=== PATIENT | female | born 2000 | race Caucasian/White ===

== ENCOUNTER 2021-02-12 20:07 | Inpatient (IN) ==
[2021-02-12] MEDS ORDERED: ONDANSETRON INJ 2 MG/ML 2 ML VIAL IV STA (20:42)
[2021-02-12] MEDS ORDERED: KETOROLAC TROMETHAMINE 15 MG/ML VIAL IV ONE (20:42)
--- NOTE | 2021-02-12 20:45 | Emergency Department Note ---
History of Present Illness General Chief complaint: Illness Stated complaint: VOMING, FEVER, DEHYDRATION Time Seen by Provider: 02/12/21 20:26 Source: patient Mode of arrival: ambulatory Limitations: no limitations History of Present Illness Maximum Pain Intensity: 8 This patient comes in feeling ill since yesterday. She had a fever and vomiting and nausea. She has body aches diffusely. She does suffer from migraines but had no significant headache neck pain or stiffness she does have a sore throat and her tonsils have been previously removed. Minimal cough. No abdominal pain. Denies . No dysuria hematuria. She may have been around somebody who was sick. She did have Covid back in November and all is also had one of the vaccines. She has a history of rheumatic heart disease and has had n o complications related to this although she does take chronic penicillin Home Medications Medication Instructions Recorded Confirmed Type alprazolam [Xanax] 0.25 mg PO DIRECTED PRN 11/29/20 02/12/21 History loratadine [Claritin] 10 mg PO QAM 11/29/20 02/12/21 History methylphenidate HCl [Ritalin] 5 mg PO DIRECTED PRN 11/29/20 02/12/21 History norethindrone (contraceptive) 0.35 mg PO HS 11/29/20 02/12/21 History [Magdalena] penicillin V potassium 250 mg PO BID 11/29/20 02/12/21 History vortioxetine [Trintellix] 10 mg PO HS 11/29/20 02/12/21 History Allergies Allergy/AdvReac Type Severity Reaction Status Date / Time No Known Allergies Allergy Verified 02/12/21 21:53 Past Med/Surg History Medical History (Updated 02/13/21 @ 10:47 by Fredi Robin MD) COVID-19 Rheumatic heart disease Strep pharyngitis Surgical History No significant past surgical history Social History Smoking Status: Never smoker Hx Alcohol Use: Yes Alcohol type: beer and hard liquor Hx Substance Use: No Preferred Language: Martiniquais Communication Ability: Effective Hood Maker Required: No Beliefs That Will Affect Care: None Current Living Situation: Other Current Living Situation Comment: Apartment with 2 roommates current occupational status: student Other Information That Helps Us Care for You: No Feels Safe at Home: Yes Safety Concerns: Feels Safe At This Time Assistive Devices: None Review of Systems A total of 10 systems reviewed and were otherwise negative Physical Exam Vital Signs Vital Signs - 24 hr 02/12/21 20:11 02/12/21 20:47 02/12/21 20:50 Temperature 37.6 C H Temperature Source Temporal Artery Scan Pulse Rate 120 H 97 H 99 H Pulse Rate from SpO2 Sensor 99 H 102 H Respiratory Rate 22 14 13 Respiratory Effort / Characteristics Respiratory Depth Normal Blood Pressure 124/80 123/66 Blood Pressure Mean 94 85 Pulse Oximetry 99 99 100 Oxygen Delivery Method Room Air Sepsis Recent Fever Within 48 Hours Yes Sepsis New/Unexplained Change in Mental Status N/A Sepsis Action Taken by Nursing No Action Required 02/12/21 21:00 02/12/21 21:01 02/12/21 21:03 Temperature Temperature Source Pulse Rate 98 H 94 H Pulse Rate from SpO2 Sensor 99 H 95 H Respiratory Rate 33 H 17 Respiratory Effort / Characteristics Respiratory Depth Blood Pressure 110/58 L Blood Pressure Mean 75 Pulse Oximetry 99 98 100 Oxygen Delivery Method Room Air Sepsis Recent Fever Within 48 Hours Sepsis New/Unexplained Change in Mental Status Sepsis Action Taken by Nursing 02/12/21 21:20 02/12/21 21:30 02/12/21 21:31 Temperature Temperature Source Pulse Rate 101 H 101 H 101 H Pulse Rate from SpO2 Sensor Respiratory Rate 17 21 22 Respiratory Effort / Characteristics Non-Labored Respiratory Depth Blood Pressure 122/70 Blood Pressure Mean 87 Pulse Oximetry 99 Oxygen Delivery Method Room Air Sepsis Recent Fever Within 48 Hours Sepsis New/Unexplained Change in Mental Status Sepsis Action Taken by Nursing 02/12/21 21:40 02/12/21 22:00 02/12/21 22:01 Temperature Temperature Source Pulse Rate 107 H 98 H 101 H Pulse Rate from SpO2 Sensor 111 H 100 H 101 H Respiratory Rate 19 19 17 Respiratory Effort / Characteristics Respiratory Depth Blood Pressure 112/54 L Blood Pressure Mean 73 Pulse Oximetry 98 99 99 Oxygen Delivery Method Sepsis Recent Fever Within 48 Hours Sepsis New/Unexplained Change in Mental Status Sepsis Action Taken by Nursing 02/12/21 22:20 02/12/21 22:30 02/12/21 22:40 Temperature Temperature Source Pulse Rate 99 H 102 H 102 H Pulse Rate from SpO2 Sensor 99 H 101 H 102 H Respiratory Rate 16 22 20 Respiratory Effort / Characteristics Respiratory Depth Blood Pressure 108/53 L Blood Pressure Mean 71 Pulse Oximetry 99 100 100 Oxygen Delivery Method Sepsis Recent Fever Within 48 Hours Sepsis New/Unexplained Change in Mental Status Sepsis Action Taken by Nursing 02/12/21 23:00 02/12/21 23:01 02/12/21 23:14 Temperature 38.3 C H Temperature Source Oral Pulse Rate 99 H 99 H Pulse Rate from SpO2 Sensor 98 H 100 H Respiratory Rate 19 21 Respiratory Effort / Characteristics Respiratory Depth Blood Pressure 115/49 L Blood Pressure Mean 71 Pulse Oximetry 98 98 Oxygen Delivery Method Sepsis Recent Fever Within 48 Hours Sepsis New/Unexplained Change in Mental Status Sepsis Action Taken by Nursing 02/12/21 23:20 02/12/21 23:30 Temperature Temperature Source Pulse Rate 111 H 120 H Pulse Rate from SpO2 Sensor 113 H 118 H Respiratory Rate 19 15 Respiratory Effort / Characteristics Respiratory Depth Blood Pressure 106/66 Blood Pressure Mean 79 Pulse Oximetry 97 96 Oxygen Delivery Method Sepsis Recent Fever Within 48 Hours Sepsis New/Unexplained Change in Mental Status Sepsis Action Taken by Nursing General: Well developed well nourished young female who appears in no acute distress, breathing comfortably on room air. Normal speech HEENT: Normal cephalic atraumatic. Pupils are equal round and reactive to light. Extraocular movements are intact. Oropharynx is pink with moist mucous membranes. No swelling of the mouth lips or tongue. Neck: Supple with a midline trachea. No meningeal signs or stiffness, no JVD or bruits. No Stridor. Negative Kernig and Brezinski sign. Chest: Clear to auscultation bilaterally. No wheezes or rhonchi. No increased work of breathing. Heart: Regular rate and rhythm without murmurs or gallops. Abdomen: Soft nontender, nondistended without rebound guarding or rigidity. Extremities: No cyanosis clubbing or edema. No calf tenderness or assymetry Spine/Back. Non tender to palpation. No CVA tenderness Skin: Good turgor without rashes. Neurologic exam: Cranial nerves two through 12 are intact. Motor and sensation are intact and symmetrical throughout. Course Administered Medications Acetaminophen (Acetaminophen 325 Mg Tab) 650 mg PO Q4H PRN PRN Reason: Pain or Fever Stop: 03/15/21 00:42 Last Admin: 02/13/21 08:01 Dose: 650 mg Documented by: [id number] Benzocaine (Benzocaine/Menthol 18 Sophia/1 Box) 1 sophia MT TID PRN PRN Reason: Sore Throat Stop: 03/15/21 02:16 Last Admin: 02/13/21 08:01 Dose: 1 sophia Documented by: [id number] Admin: 02/13/21 03:23 Dose: 1 sophia Documented by: [id number] Sodium Chloride (Nss 1000ml) 1,000 mls @ 125 mls/hr IV .Q8H ANDREW Stop: 02/14/21 00:42 Last Infusion: 02/13/21 10:01 Dose: 0 mls/hr Documented by: [id number] Admin: 02/13/21 09:09 Dose: 125 mls/hr Documented by: [id number] Infusion: 02/13/21 09:03 Dose: 0 mls/hr Documented by: [id number] Admin: 02/13/21 00:59 Dose: 125 mls/hr Documented by: [id number] Doxycycline Hyclate 100 mg/ (Dextrose) 110 mls @ 50 mls/hr IV Q12H ANDREW Stop: 02/23/21 05:59 Last Infusion: 02/13/21 08:06 Dose: 0 mls/hr Documented by: [id number] Admin: 02/13/21 05:48 Dose: 50 mls/hr Documented by: [id number] Loratadine (Loratadine 10 Mg Tab) 10 mg PO QAM ANDREW Stop: 03/15/21 08:59 Last Admin: 02/13/21 08:01 Dose: 10 mg Documented by: [id number] Miscellaneous (Bcp's~Order Awaiting Action) 1 ea N/A QS ANDREW Stop: 03/15/21 07:59 Last Admin: 02/13/21 07:51 Dose: Not Given Documented by: [id number] Miscellaneous (Trintellix~Order Awaiting Action) 1 ea N/A QS ANDREW Stop: 03/15/21 07:59 Last Admin: 02/13/21 07:51 Dose: Not Given Documented by: [id number] Discontinued Medications Acetaminophen (Acetaminophen 325 Mg Tab) 650 mg PO NOW STA Stop: 02/12/21 22:10 Last Admin: 02/12/21 22:26 Dose: 650 mg Documented by: [id number] Sodium Chloride (Nss 1000ml) 1,000 mls @ 999 mls/hr IV .Q1H1M ONE Stop: 02/12/21 23:09 Last Infusion: 02/12/21 23:27 Dose: 0 mls/hr Documented by: [id number] Admin: 02/12/21 22:25 Dose: 999 mls/hr Documented by: [id number] Ceftriaxone Sodium (Rocephin) 2,000 mg in 70 mls @ 140 mls/hr IV NOW STA Stop: 02/12/21 23:01 Last Infusion: 02/12/21 23:26 Dose: 0 mls/hr Documented by: [id number] Admin: 02/12/21 22:48 Dose: 140 mls/hr Documented by: [id number] Vancomycin HCl 1,500 mg/ (Sodium Chloride) 530 mls @ 200 mls/hr IV TODAY@0100 ANDREW Stop: 02/13/21 03:38 Last Infusion: 02/13/21 04:14 Dose: 0 mls/hr Documented by: [id number] Admin: 02/13/21 01:03 Dose: 200 mls/hr Documented by: [id number] Ketorolac Tromethamine (Ketorolac Tromethamine 15 Mg/Ml Vial) 15 mg IV NOW ONE Stop: 02/12/21 20:43 Last Admin: 02/12/21 21:10 Dose: 15 mg Documented by: [id number] Ketorolac Tromethamine (Ketorolac Tromethamine 15 Mg/Ml Vial) 10 mg IV NOW STA Stop: 02/12/21 23:50 Last Admin: 02/13/21 00:00 Dose: 10 mg Documented by: [id number] Ondansetron HCl (Ondansetron Inj 2 Mg/Ml 2 Ml Vial) 4 mg IV NOW STA Stop: 02/12/21 20:43 Last Admin: 02/12/21 21:10 Dose: 4 mg Documented by: [id number] Medical Decision Making Differential Diagnosis Sepsis, viral illness, Covid, pneumonia, UTI, electrolyte or metabolic abnormality, GI illness, endocarditis Medical Records Attestation: I reviewed the patient's medical records. Home Medications Current Medication List: was personally reviewed by me Laboratory Data Attestation: I reviewed the patient's lab results. Result diagrams: 02/12/21 21:00 02/13/21 08:51 Lab Results 02/12/21 02/12/21 02/12/21 Range/Units 20:51 20:51 20:51 WBC (4.8-10.8) K/uL RBC (4.2-5.4) M/uL Hgb (12.0-16.0) g/dL Hct (37-47) % MCV (80-100) fL MCH (25-34) pg MCHC (32-36) g/dL RDW Std Deviation (36.4-46.3) fL RDW Coeff of Davonte (11.5-14.5) % Plt Count (130-400) K/uL MPV (7.4-10.4) fL Immature Gran % (Auto) % Neut % (Auto) % Lymph % (Auto) % [place] % (Auto) % Eos % (Auto) % Baso % (Auto) % Neut # (Auto) (1.4-6.5) K/uL Lymph # (Auto) (1.2-3.4) K/uL [place] # (Auto) (0.11-0.59) K/uL Eos # (Auto) (0-0.5) K/uL Baso # (Auto) (0-0.2) K/uL Immature Gran # (Auto) (0.00-0.02) K/uL RBC Morphology PT (9.0-12.0) Seconds INR (0.9-1.1) APTT (21.0-31.0) Seconds PTT Ratio Sodium (136-145) mmol/L Potassium (3.5-5.1) mmol/L Chloride (98-107) mmol/L Carbon Dioxide (21-32) mmol/L Anion Gap (3-11) BUN (7-18) mg/dl Creatinine (0.6-1.2) mg/dl Est Cr Clr Drug Dosing ml/min Est GFR ( Amer) Est GFR (Non-Af Amer) BUN/Creatinine Ratio (10-20) Glucose (70-99) mg/dl Lactate (0.4-2.0) mmol/L Calcium (8.5-10.1) mg/dl Magnesium (1.8-2.4) mg/dl Total Bilirubin (0.2-1) mg/dl AST (15-37) U/L ALT (12-78) U/L Alkaline Phosphatase (45-117) U/L Total Protein (6.4-8.2) gm/dl Albumin (3.4-5.0) gm/dl Globulin (2.5-4.0) gm/dl Albumin/Globulin Ratio (0.9-2) Procalcitonin (0-0.5) ng/ml HCG, Qual (Negative) Urine Color Yellow Urine Appearance Clear (Clear) Urine pH 6.0 (4.5-7.5) Ur Specific [place] 1.031 H (1.000-1.030) Urine Protein Negative (Negative) Urine Glucose (UA) Negative (Negative) Urine Ketones 2+ H (Negative) Urine Blood Negative (Negative) Urine Nitrite Negative (Negative) Urine Bilirubin Negative (Negative) Urine Urobilinogen Negative (Negative) Ur Leukocyte Esterase Negative (Negative) Anaplasma Smear Lyme Disease IgG Ab (Negative) Lyme Disease IgM Ab (Negative) COVID-19 Eval Order CovFluRsv at [facility] SARS-CoV-2 (PCR) NEGATIVE (Negative) Monoscreen (Negative) Influenza Type A (PCR) Negative (Neg) Influenza Type B (PCR) Negative (Neg) RSV (RT-PCR) Negative (Neg) 02/12/21 02/12/21 02/12/21 Range/Units 21:00 21:00 21:00 WBC 16.22 H (4.8-10.8) K/uL RBC 5.13 (4.2-5.4) M/uL Hgb 15.9 (12.0-16.0) g/dL Hct 44.5 (37-47) % MCV 86.7 (80-100) fL MCH 31.0 (25-34) pg MCHC 35.7 (32-36) g/dL RDW Std Deviation 40.2 (36.4-46.3) fL RDW Coeff of Davonte 12.5 (11.5-14.5) % Plt Count 222 (130-400) K/uL MPV 10.2 (7.4-10.4) fL Immature Gran % (Auto) 0.2 % Neut % (Auto) 90.2 % Lymph % (Auto) 4.3 % [place] % (Auto) 5.0 % Eos % (Auto) 0.1 % Baso % (Auto) 0.2 % Neut # (Auto) 14.63 H (1.4-6.5) K/uL Lymph # (Auto) 0.70 L (1.2-3.4) K/uL [place] # (Auto) 0.81 H (0.11-0.59) K/uL Eos # (Auto) 0.02 (0-0.5) K/uL Baso # (Auto) 0.03 (0-0.2) K/uL Immature Gran # (Auto) 0.03 H (0.00-0.02) K/uL RBC Morphology Unremarkable PT 10.0 (9.0-12.0) Seconds INR 1.0 (0.9-1.1) APTT 25.7 (21.0-31.0) Seconds PTT Ratio 1.0 Sodium (136-145) mmol/L Potassium (3.5-5.1) mmol/L Chloride (98-107) mmol/L Carbon Dioxide (21-32) mmol/L Anion Gap (3-11) BUN (7-18) mg/dl Creatinine (0.6-1.2) mg/dl Est Cr Clr Drug Dosing ml/min Est GFR ( Amer) Est GFR (Non-Af Amer) BUN/Creatinine Ratio (10-20) Glucose (70-99) mg/dl Lactate (0.4-2.0) mmol/L Calcium (8.5-10.1) mg/dl Magnesium (1.8-2.4) mg/dl Total Bilirubin (0.2-1) mg/dl AST (15-37) U/L ALT (12-78) U/L Alkaline Phosphatase (45-117) U/L Total Protein (6.4-8.2) gm/dl Albumin (3.4-5.0) gm/dl Globulin (2.5-4.0) gm/dl Albumin/Globulin Ratio (0.9-2) Procalcitonin < 0.05 (0-0.5) ng/ml HCG, Qual Negative (Negative) Urine Color Urine Appearance (Clear) Urine pH (4.5-7.5) Ur Specific [place] (1.000-1.030) Urine Protein (Negative) Urine Glucose (UA) (Negative) Urine Ketones (Negative) Urine Blood (Negative) Urine Nitrite (Negative) Urine Bilirubin (Negative) Urine Urobilinogen (Negative) Ur Leukocyte Esterase (Negative) Anaplasma Smear See Comment Lyme Disease IgG Ab (Negative) Lyme Disease IgM Ab (Negative) COVID-19 Eval Order SARS-CoV-2 (PCR) (Negative) Monoscreen Negative (Negative) Influenza Type A (PCR) (Neg) Influenza Type B (PCR) (Neg) RSV (RT-PCR) (Neg) 02/12/21 02/12/21 02/12/21 Range/Units 21:00 21:00 21:00 WBC (4.8-10.8) K/uL RBC (4.2-5.4) M/uL Hgb (12.0-16.0) g/dL Hct (37-47) % MCV (80-100) fL MCH (25-34) pg MCHC (32-36) g/dL RDW Std Deviation (36.4-46.3) fL RDW Coeff of Davonte (11.5-14.5) % Plt Count (130-400) K/uL MPV (7.4-10.4) fL Immature Gran % (Auto) % Neut % (Auto) % Lymph % (Auto) % [place] % (Auto) % Eos % (Auto) % Baso % (Auto) % Neut # (Auto) (1.4-6.5) K/uL Lymph # (Auto) (1.2-3.4) K/uL [place] # (Auto) (0.11-0.59) K/uL Eos # (Auto) (0-0.5) K/uL Baso # (Auto) (0-0.2) K/uL Immature Gran # (Auto) (0.00-0.02) K/uL RBC Morphology PT (9.0-12.0) Seconds INR (0.9-1.1) APTT (21.0-31.0) Seconds PTT Ratio Sodium 137 (136-145) mmol/L Potassium 3.4 L (3.5-5.1) mmol/L Chloride 105 (98-107) mmol/L Carbon Dioxide 24 (21-32) mmol/L Anion Gap 8.0 (3-11) BUN 13 (7-18) mg/dl Creatinine 0.96 (0.6-1.2) mg/dl Est Cr Clr Drug Dosing 86.0 ml/min Est GFR ( Amer) 97.3 Est GFR (Non-Af Amer) 83.9 BUN/Creatinine Ratio 13.9 (10-20) Glucose 85 (70-99) mg/dl Lactate 1.2 (0.4-2.0) mmol/L Calcium 10.3 H (8.5-10.1) mg/dl Magnesium 2.0 (1.8-2.4) mg/dl Total Bilirubin 1.1 H (0.2-1) mg/dl AST 16 (15-37) U/L ALT 17 (12-78) U/L Alkaline Phosphatase 105 (45-117) U/L Total Protein 9.1 H (6.4-8.2) gm/dl Albumin 5.1 H (3.4-5.0) gm/dl Globulin 4.0 (2.5-4.0) gm/dl Albumin/Globulin Ratio 1.3 (0.9-2) Procalcitonin (0-0.5) ng/ml HCG, Qual (Negative) Urine Color Urine Appearance (Clear) Urine pH (4.5-7.5) Ur Specific [place] (1.000-1.030) Urine Protein (Negative) Urine Glucose (UA) (Negative) Urine Ketones (Negative) Urine Blood (Negative) Urine Nitrite (Negative) Urine Bilirubin (Negative) Urine Urobilinogen (Negative) Ur Leukocyte Esterase (Negative) Anaplasma Smear Lyme Disease IgG Ab Negative (Negative) Lyme Disease IgM Ab Negative (Negative) COVID-19 Eval Order SARS-CoV-2 (PCR) (Negative) Monoscreen (Negative) Influenza Type A (PCR) (Neg) Influenza Type B (PCR) (Neg) RSV (RT-PCR) (Neg) Imaging Data Attestation: I personally reviewed and interpreted this imaging study as follows: My Impression: Chest x-rayno acute infiltrate, failure, pneumothorax seen upon my interpretation Radiologist's Impression: Chest X-Ray 02/12/21 20:41 XR chest 1V portable CLINICAL HISTORY: SEPSIS COMPARISON STUDY: Radiograph November 28, 2020. FINDINGS: Lung volumes are normal. Lungs are clear. There is no pneumothorax or pleural effusion. Cardiac size is normal. Mediastinal contours are normal. There is no evidence for pulmonary edema. IMPRESSION: No acute cardiopulmonary findings. ACT 112: Negative or not required by law. Electronically signed by: Jorge Nguyen M.D. 02/13/2021 7:21 AM ECG Data Attestation: I personally reviewed and interpreted this ECG as follows: Indication: + weakness Rate (beats per minute): 97 Rhythm: + normal sinus ECG Intervals/blocks: + Normal QRS, + Normal QT and + Normal MT ECG [place]: + Normal ECG ST segments: + Normal ST segments ECG Findings: no PACs and no PVCs Comparison ECG Date: from (11/28/20) Change: no significant change MDM Narrative This patient comes in as described above. She was placed on a site monitor and benign. She is here for treatment evaluation of fever body aches. IV access was established and she was hydrated with 1 L IV normal saline bolus. EKG was obtained. There are no ischemic changes. Her white count is elevated 15. She has no significant lecture light or metabolic abnormalities. Chest x- ray was clear. Covid testing was negative. She was given Toradol IV. She does not feel much better was given a second IV normal saline bolus. She was given Tylenol p.o. At this point I do not have a definite source. Most likely this is viral. Tickborne illness would also be in the differential as well as sepsis. Given the fact that she does have a heart murmur/rheumatic heart disease, endocarditis is potentially concerned as well. She was given Rocephin 2 g IV. I do think she would benefit from further inpatient treatment and observation. She has no meningeal signs or stiffness and no headache or neck pain to suggest a ASSOCIATE PASTOR infection. I have consulted Dr. Hernandez for the [facility] physician group to see her. Continuous cardiac monitoring: Due to the concern for infection/sepsis. An order was placed in EMR for continuous cardiac monitoring. The patient was noted to be in sinus tachycardia with a rate of 100 Impression & Plan Sepsis, Rheumatic heart disease, Fever, Lab test negative for COVID-19 virus, Not currently Discharge Plan Visit Data Chief Complaint: Illness Stated Complaint: VOMING, FEVER, DEHYDRATION ED Provider: Fredi Robin Discharge Problem: Sepsis, Rheumatic heart disease, Fever, Lab test negative for COVID-19 virus, Not currently Patient Disposition: Admitted As Inpatient Discharge Instructions Interventions: ED Discharge Assessment Last Done: 02/13/21 00:31 Discharge Problem: Sepsis Qualifiers: Sepsis type: sepsis due to unspecified organism Sepsis acute organ dysfunction status: without acute organ dysfunction Qualified Code(s): A41.9 - Sepsis, unspecified organism Fever Qualifiers: Fever type: unspecified Qualified Code(s): R50.9 - Fever, unspecified
[2021-02-12 21:00] LABS: Appearance Urine Clear (Clear); Bilirubin Urine Negative (Negative); Blood Urine Negative (Negative); Color Urine Yellow; Glucose Urine UA Negative (Negative); Ketones Urine 2+ (Negative); Leukocyte Esterase Urine Negative (Negative); Nitrite Urine Negative (Negative); Protein Urine Negative (Negative); Specific Gravity Urine 1.031 (1.000-1.030); Urobilinogen Urine Negative (Negative)
[2021-02-12 21:21] LABS: Basophils # (auto) 0.03 K/uL (0-0.2); Basophils % (auto) 0.2 %; Eosinophils # (auto) 0.02 K/uL (0-0.5); Eosinophils % (auto) 0.1 %; Hematocrit (blood only) 44.5 % (37-47); Hemoglobin 15.9 g/dL (12.0-16.0); Immature Granulocytes # (auto) 0.03 K/uL (0.00-0.02); Immature Granulocytes % (auto) 0.2 %; Lymphocytes % (auto) 4.3 %; Mean Corpuscular Hgb Conc 35.7 g/dL (32-36); Mean Corpuscular Volume 86.7 fL (80-100); Mean Platelet Volume 10.2 fL (7.4-10.4); Monocytes # (auto) 0.81 K/uL (0.11-0.59); Neutrophils # (auto) 14.63 K/uL (1.4-6.5); Neutrophils % (auto) 90.2 %; Platelet Count 222 K/uL (130-400); RDW Coefficient of Variation 12.5 % (11.5-14.5); RDW Standard Deviation 40.2 fL (36.4-46.3); Red Blood Count 5.13 M/uL (4.2-5.4); White Blood Count 16.22 K/uL (4.8-10.8)
[2021-02-12 21:37] LABS: Albumin Level 5.1 gm/dl (3.4-5.0); BUN Creatinine Ratio 13.9 (10-20); Calcium 10.3 mg/dl (8.5-10.1); Est GFR (African American) 97.3; Est GFR (Non-African American) 83.9; Potassium 3.4 mmol/L (3.5-5.1)
[2021-02-12 21:39] LABS: Influenza A virus by PCR Negative (Neg); Influenza B virus by PCR Negative (Neg); RSV by PCR Negative (Neg); SARS CoV2 RNA(COVID-19) InHosp NEGATIVE (Negative)
[2021-02-12 21:40] LABS: Albumin Globulin Ratio 1.3 (0.9-2); Bilirubin,Total 1.1 mg/dl (0.2-1); Total Protein 9.1 gm/dl (6.4-8.2)
[2021-02-12 21:42] LABS: Partial Thromboplastin Time 25.7 Seconds (21.0-31.0)
[2021-02-12] MEDS ORDERED: ACETAMINOPHEN 325 MG TAB PO STA (22:09)
[2021-02-12] MEDS ORDERED: SODIUM CHLORIDE 0.9% 1000ML 1,000 ML IV ONE (22:09)
[2021-02-12 22:28] LABS: Monotest Negative (Negative); Pregnancy Test, Serum Negative (Negative)
[2021-02-12] MEDS ORDERED: cefTRIAXone SODIUM 2,000 MG/70 ML BAG IV STA (22:32)
[2021-02-12 22:37] LABS: Procalcitonin < 0.05 ng/ml (0-0.5)
[2021-02-12] MEDS ORDERED: KETOROLAC TROMETHAMINE 15 MG/ML VIAL IV STA (23:49)
--- NOTE | 2021-02-12 23:51 | History & Physical Report ---
Date of Service February 12, 2021 Assessment & Plan (1) Fever: 21 yoF with hx rheumatic heart disease admitted for fever of unknown origin and generalized illness. Fever workup - WBC 16k, febrile to 38.3C in ER - likely viral vs. tick-borne illness given body-wide symptomology, lyme-endemic region and exposure in grass/calvin - lyme IgG, IgM pending - ehrlichiosis and anaplasma Ig and smears pending - no indication for GI/Pulm/Skin source - flu, rsv, covid, mono negative - blood cultures pending - tylenol/ibuprofen/toradol for fever and pain management Hx rheumatic Heart disease - concern for endocarditis given elevated risk profile - TTE in AM - request records from pediatric ophthalmologist - Vanc, Ceftriaxone, Doxycycline IV for tick-borne illness and endocarditis treatment Anxiety - cont home trintillex Dvt ppx: low risk, ambulate ad robi FEN/GI: IV NS, zofran, Code Status: full code Dispo: med/surg with tele (2) Anxiety: (3) Rheumatic heart disease: History of Present Illness 21 yo F with hx rheumatic heart disease presenting to ER for 2 days of fever and general illness. Describes initially feverish, progressing to chills, sweats, nausea, vomiting, loss of appetite, joint pains, fatigue. Denies rashes, swelling/joint swelling that she has noticed, blurry vision, headache, lightheadedness. Says her friend that she saw yesterday had a fever today but was not as sick as she is. Denies any other sick contacts. Had covid in November, got the first pfizer vaccine in beginning of february. 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 takes daily penicillin prophylaxis. Does state that she has been taking graduation pictures for the past 2 weeks and spent considerable time sitting in the grass/calvin. Hasn't been wearing bug spray and only checked her ankles for ticks. hasn't had anyone else check her hair or body for ticks. Primary Care Provider: [facility] Allergies Allergy/AdvReac Type Severity Reaction Status Date / Time No Known Allergies Allergy Verified 02/12/21 21:53 Home Medications Medication Instructions Recorded Confirmed Type alprazolam [Xanax] 0.25 mg PO DIRECTED PRN 11/29/20 02/12/21 History loratadine [Claritin] 10 mg PO QAM 11/29/20 02/12/21 History methylphenidate HCl [Ritalin] 5 mg PO DIRECTED PRN 11/29/20 02/12/21 History norethindrone (contraceptive) 0.35 mg PO HS 11/29/20 02/12/21 History [[place]] penicillin V potassium 250 mg PO BID 11/29/20 02/12/21 History vortioxetine [Trintellix] 10 mg PO HS 11/29/20 02/12/21 History Past Med/Surg History Medical History (Updated 02/13/21 @ 10:47 by Fredi Robin MD) COVID-19 Rheumatic heart disease Strep pharyngitis Surgical History No significant past surgical history Social History Smoking Status: Never smoker Hx Alcohol Use: Yes Alcohol type: beer and hard liquor Hx Substance Use: No Preferred Language: Yakut Communication Ability: Effective Net Developer Required: No Beliefs That Will Affect Care: None Current Living Situation: Other Current Living Situation Comment: Apartment with 2 roommates current occupational status: student Other Information That Helps Us Care for You: No Feels Safe at Home: Yes Safety Concerns: Feels Safe At This Time Assistive Devices: None Review of Systems Review of Systems: All systems reviewed & are unremarkable except as noted in Subjective Physical Exam Physical Exam: Constitutional: thin ill appearing young female Eyes: EOMI, pupils equal and reactive bilaterally, no scleral icterus Cardiac: RRR, prominent 3/6 blowing systolic murmur at apex Pulm: CTA BL, no wheezes, rhonchi, crackles or rubs, moving air well throughout both lungs Abd: soft, nontender, nondistended, normal bowel sounds, no rebound or guarding Extremities: 2+ peripheral pulses, no edema Skin: no rashes, spinter hemorrhages on nails, janeway lesions, osler nodes Joints: mild effusion of L knee compared to R, otherwise Neuro: no focal deficits, moving all 4 limbs, A&Ox3 Results & Data Results & Data ([place]) Vital Signs (Past 12 Hours) Vital Signs Temp Pulse Resp BP Pulse Ox 02/12/21 23:40 101 H 17 97 02/12/21 23:30 120 H 15 106/66 96 02/12/21 23:20 111 H 19 97 02/12/21 23:14 38.3 C H 02/12/21 23:01 99 H 21 98 02/12/21 23:00 99 H 19 115/49 L 98 02/12/21 22:40 102 H 20 100 02/12/21 22:30 102 H 22 108/53 L 100 02/12/21 22:20 99 H 16 99 02/12/21 22:01 101 H 17 99 02/12/21 22:00 98 H 19 112/54 L 99 02/12/21 21:40 107 H 19 98 02/12/21 21:31 101 H 22 02/12/21 21:30 101 H 21 122/70 99 02/12/21 21:20 101 H 17 02/12/21 21:03 100 02/12/21 21:01 94 H 17 98 02/12/21 21:00 98 H 33 H 110/58 L 99 02/12/21 20:50 99 H 13 100 02/12/21 20:47 97 H 14 123/66 99 02/12/21 20:11 37.6 C H 120 H 22 124/80 99 Laboratory Results WBC 16.22 K/uL (4.8-10.8) H 02/12/21 21:00 RBC 5.13 M/uL (4.2-5.4) 02/12/21 21:00 Hgb 15.9 g/dL (12.0-16.0) 02/12/21 21:00 Hct 44.5 % (37-47) 02/12/21 21:00 MCV 86.7 fL (80-100) 02/12/21 21:00 MCH 31.0 pg (25-34) 02/12/21 21:00 MCHC 35.7 g/dL (32-36) 02/12/21 21:00 RDW Std Deviation 40.2 fL (36.4-46.3) 02/12/21 21:00 RDW Coeff of [place] 12.5 % (11.5-14.5) 02/12/21 21:00 Plt Count 222 K/uL (130-400) 02/12/21 21:00 MPV 10.2 fL (7.4-10.4) 02/12/21 21:00 Immature Gran % (Auto) 0.2 % 02/12/21 21:00 Neut % (Auto) 90.2 % 02/12/21 21:00 Lymph % (Auto) 4.3 % 02/12/21 21:00 [place] % (Auto) 5.0 % 02/12/21 21:00 Eos % (Auto) 0.1 % 02/12/21 21:00 Baso % (Auto) 0.2 % 02/12/21 21:00 Neut # (Auto) 14.63 K/uL (1.4-6.5) H 02/12/21 21:00 Lymph # (Auto) 0.70 K/uL (1.2-3.4) L 02/12/21 21:00 [place] # (Auto) 0.81 K/uL (0.11-0.59) H 02/12/21 21:00 Eos # (Auto) 0.02 K/uL (0-0.5) 02/12/21 21:00 Baso # (Auto) 0.03 K/uL (0-0.2) 02/12/21 21:00 Immature Gran # (Auto) 0.03 K/uL (0.00-0.02) H 02/12/21 21:00 RBC Morphology Unremarkable 02/12/21 21:00 PT 10.0 Seconds (9.0-12.0) 02/12/21 21:00 INR 1.0 (0.9-1.1) 02/12/21 21:00 APTT 25.7 Seconds (21.0-31.0) 02/12/21 21:00 PTT Ratio 1.0 02/12/21 21:00 Sodium 137 mmol/L (136-145) 02/12/21 21:00 Potassium 3.4 mmol/L (3.5-5.1) L 02/12/21 21:00 Chloride 105 mmol/L (98-107) 02/12/21 21:00 Carbon Dioxide 24 mmol/L (21-32) 02/12/21 21:00 Anion Gap 8.0 (3-11) 02/12/21 21:00 BUN 13 mg/dl (7-18) 02/12/21 21:00 Creatinine 0.96 mg/dl (0.6-1.2) 02/12/21 21:00 Est Cr Clr Drug Dosing 86.0 ml/min 02/12/21 21:00 Est GFR ( Amer) 97.3 02/12/21 21:00 Est GFR (Non-Af Amer) 83.9 02/12/21 21:00 BUN/Creatinine Ratio 13.9 (10-20) 02/12/21 21:00 Glucose 85 mg/dl (70-99) 02/12/21 21:00 Lactate 1.2 mmol/L (0.4-2.0) 02/12/21 21:00 Calcium 10.3 mg/dl (8.5-10.1) H 02/12/21 21:00 Magnesium 2.0 mg/dl (1.8-2.4) 02/12/21 21:00 Total Bilirubin 1.1 mg/dl (0.2-1) H 02/12/21 21:00 AST 16 U/L (15-37) 02/12/21 21:00 ALT 17 U/L (12-78) 02/12/21 21:00 Alkaline Phosphatase 105 U/L (45-117) 02/12/21 21:00 Total Protein 9.1 gm/dl (6.4-8.2) H 02/12/21 21:00 Albumin 5.1 gm/dl (3.4-5.0) H 02/12/21 21:00 Globulin 4.0 gm/dl (2.5-4.0) 02/12/21 21:00 Albumin/Globulin Ratio 1.3 (0.9-2) 02/12/21 21:00 Procalcitonin < 0.05 ng/ml (0-0.5) 02/12/21 21:00 HCG, Qual Negative (Negative) 02/12/21 21:00 Urine Color Yellow 02/12/21 20:51 Urine Appearance Clear (Clear) 02/12/21 20:51 Urine pH 6.0 (4.5-7.5) 02/12/21 20:51 Ur Specific [place] 1.031 (1.000-1.030) H 02/12/21 20:51 Urine Protein Negative (Negative) 02/12/21 20:51 Urine Glucose (UA) Negative (Negative) 02/12/21 20:51 Urine Ketones 2+ (Negative) H 02/12/21 20:51 Urine Blood Negative (Negative) 02/12/21 20:51 Urine Nitrite Negative (Negative) 02/12/21 20:51 Urine Bilirubin Negative (Negative) 02/12/21 20:51 Urine Urobilinogen Negative (Negative) 02/12/21 20:51 Ur Leukocyte Esterase Negative (Negative) 02/12/21 20:51 Anaplasma Smear See Comment 02/12/21 21:00 Lyme Disease IgG Ab Negative (Negative) 02/12/21 21:00 Lyme Disease IgM Ab Negative (Negative) 02/12/21 21:00 COVID-19 Eval Order [facility] at [facility] 02/12/21 20:51 SARS-CoV-2 (PCR) NEGATIVE (Negative) 02/12/21 20:51 Monoscreen Negative (Negative) 02/12/21 21:00 Influenza Type A (PCR) Negative (Neg) 02/12/21 20:51 Influenza Type B (PCR) Negative (Neg) 02/12/21 20:51 RSV (RT-PCR) Negative (Neg) 02/12/21 20:51 Supervising Physician Co-Signing Physician Notes Attending addendum: I have physically seen this patient, have supervised the medical residents activities, and agree with the H&P unless as otherwise noted. Assessment and Plan: Febrile illness/history of medical heart disease- Neutrophilic leukocytosis, temperature T-max 38.3 C Ordering laboratory studies: Lyme, ehrlichiosis, anaplasmosis, sed rate, HUSSAIN, rheumatoid factor. Influenza, RSV, COVID-19 and Monospot negative Empiric treatment vancomycin, ceftriaxone IV and doxycycline IV. Acetaminophen 650 mg p.o. every 6 hours as needed mild pain or fever Anxiety- Continue Trintellix Remaining orders and notations as noted Resident Activity Tracking Resident Involvement: Resident Care Provided Care Provided: Adult Hospital Medicine (1) Fever Fever type: unspecified Qualified Code(s): R50.9 - Fever, unspecified
[2021-02-13 00:34] LABS: RBC Morphology Unremarkable
[2021-02-13] MEDS ORDERED: MAGNESIUM HYDROXIDE SUSP 30 ML UDC PO PRN (00:43)
[2021-02-13] MEDS ORDERED: KETOROLAC TROMETHAMINE 15 MG/ML VIAL IV PRN (00:43)
[2021-02-13] MEDS ORDERED: ONDANSETRON INJ 2 MG/ML 2 ML VIAL IV PRN (00:43)
[2021-02-13] MEDS ORDERED: POLYETHYLENE (MIRALAX) 17 GM PACK PO PRN (00:43)
[2021-02-13] MEDS ORDERED: NITROGLYCERIN SL 0.4 MG/TAB TAB SL PRN (00:43)
[2021-02-13] MEDS ORDERED: VANCOMYCIN CONSULT ACTIVE PRN (00:43)
[2021-02-13] MEDS ORDERED: VANCOMYCIN HCL 1,000 MG in SODIUM CHLORIDE 0.9% 250 ML IV SCH (00:43)
[2021-02-13 00:47] LABS: Lyme Ab IgG w/WB Rflx Negative (Negative); Lyme Ab IgM w/WB Rflx Negative (Negative)
[2021-02-13] MEDS: SODIUM CHLORIDE 0.9% 1000ML 1,000 ML IV SCH ×3 (00:59→17:44)
[2021-02-13] MEDS ORDERED: VANCOMYCIN HCL 1,500 MG in SODIUM CHLORIDE 0.9% 500 ML IV SCH (01:00)
[2021-02-13] MEDS ORDERED: DOXYCYCLINE HYCLATE 100 MG in DEXTROSE 5% 100 ML IV SCH ×2 (02:00→06:00)
[2021-02-13] MEDS: BENZOCAINE/MENTHOL 18 LOZ/1 BOX MT PRN ×2 (03:23→08:01)
--- NOTE | 2021-02-13 07:22 | XRay Report ---
XR chest 1V portable CLINICAL HISTORY: SEPSIS COMPARISON STUDY: Radiograph November 28, 2020. FINDINGS: Lung volumes are normal. Lungs are clear. There is no pneumothorax or pleural effusion. Car diac size is normal. Mediastinal contours are normal. There is no evidence for pulmonary edema. IMPRESSION: No acute cardiopulmonary findings. ACT 112: Negative or not required by law. Electronically signed by: Jorge Ngueyn M.D. 02/13/2021 7:21 AM
[2021-02-13] MEDS: BCP'S~ORDER AWAITING ACTION SCH ×3 (07:51→23:19)
[2021-02-13] MEDS: TRINTELLIX~ORDER AWAITING ACTION SCH ×3 (07:51→23:19)
[2021-02-13] MEDS: ACETAMINOPHEN 325 MG TAB PO PRN ×4 (08:01→22:23)
[2021-02-13] MEDS: LORATADINE 10 MG TAB PO SCH (08:01)
[2021-02-13] MEDS ORDERED: PENICILLIN PO SCH (09:00)
[2021-02-13 09:56] LABS: Creatinine Clr Calc Pharmacy 111.6 ml/min; Est GFR (African American) 133.3
[2021-02-13] MEDS ORDERED: VANCOMYCIN HCL 750 MG in SODIUM CHLORIDE 0.9% 250 ML IV SCH ×2 (10:00→18:00)
--- NOTE | 2021-02-13 10:33 | Medical Student Progress Note ---
Date of Service February 13, 2021 Assessment & Plan (1) Fever: Arianne Penn is a 21-year-old female with a past medical history of rheumatic heart disease on chronic penicillin who presented to [facility] emergency department on 02/12/21 with fever, muscle aches, vomiting, and dehydration. She was febrile but hemodynamically stable on presentation and she was admitted for IV rehydration and investigation of potential viral vs. tickborne vs. inflammatory etiologies of her illness as well as endocarditis rule out due to her history of rheumatic heart disease with mitral valve damage. 1. Fever * Mildly febrile today (38.0). Peak temperature 38.3 at time of admission * Leukocytosis (16.22) with neutrophil predominance * Blood culture pending * Urinalysis normal. Normal LFTs. Normal CXR. No dermatologic sources of infection * Negative Covid, Infleunza, RSV, [place] * Lyme IgM and IgG negative * Anaplasma smear negative. Anaplasma DNA pending. Ehrlichia pending. * No vegetation or valvular abnormality on echocardiogram * Broad spectrum antibiotic coverage with Vancomycin, Ceftriaxone, and Doxycycline initiated in emergency department. Discontinued Vancomycin and Ceftriaxone on 02/13/21 due to low suspicion for non-tickborne bacterial etiology. Although a viral etiology is suspected, it is reasonable to continue Doxycycline for coverage of potential tickborne illnesses due to high local prevalence. Lyme antibodies negative but finding has low sensitivity in early disease * Continue maintenance fluids with normal saline infusion due to poor PO intake 2. Rheumatic Heart Disease Patient has a history of rheumatic heart disease managed with chronic penicillin since age 4. The patient endorses a history of mitral valve damage with known systolic murmur. * Transthoracic echo performed 02/13/21: Normal LV size and function. EF 60-65%. No LV hypertrophy. No significant diastolic dysfunction. No significant valvular abnormality. No visualized vegetation. Normal estimated RV systolic pressure. * Penicillin V potassium 250 mg BID Code Status: Full Code F/E/N: Normal saline. Normal diet VTE PPx: Low risk. Ambulation Dispo: med/surg. Plan to discharge home tomorrow Fever type: unspecified Qualified Code(s): R50.9 - Fever, unspecified Admission and Anticipated Discharge Date Admission Date: February 12, 2021 Supervising Attestation I personally examined the patient and verified all day points of history and exam, discussed case, and agree with decision making with J [place] MS4 sore throat. aches all over. joints hurt. tired. vitals noted nad heent nc at erythematous oropharyx no exudate. mild mobile anterior adenopathy. breathing unlabored no accessory muscles good effort skin no rashes no pallor or icterus sepsis appearance - likely viral, can't definitively rule out tick borne. continue supportive care, serial exams, empiric doxy. home once feeling better. otherwise as above Subjective Patient states that she begin to feel ill on Thursday, two days prior to presentation to [facility]. Yesterday evening, she started feeling significantly worse with a subjective fever, vomiting, and muscle aches. She states that one of her friends had a mild fever yesterday while they were taking senior pictures together but she is not aware of any other sick contacts. She denies any recent travel. She was last sexually active in April and barrier contraception was used. She denies any IV drug use or other recreational drug use. She does not recall any tick bites or rashes but she does endorse being in tall grass several times recently. She does note that had a red bump on her right arm a few days ago that she described as a mosquito bite. She denies any PMHx or FHx of autoimmune disease. She also denies any joint pain, fatigue, or malaise prior to the acute onset of her current illness. She notes that she had Covid in November and she received the first dose of the Pfizer vaccine at the beginning of February. She has a history of rheumatic heart disease with mitral regurgitation and she has been on chronic penicillin since age 4. She does not endorse any recent dental procedures or farm animal exposure. Today, she states that she still has fever, chills, and muscle aches. She also endorses a sore throat. She is still nauseous but nausea has decreased since yesterday. Her last episode of vomiting was last night around 9 pm. She has had minimal oral intake of fluids or food yesterday and this morning and she does not have an appetite this morning. She does not endorse shortness of breath, chest pain, palpitations, or cough. She also denies any dysuria, urinary frequency, or change in bowel movement form or frequency. Review of Systems Constitutional: as per Subjective / HPI Eyes: no problem reported Ear, Nose, Mouth, Throat: as per Subjective / HPI Respiratory: as per Subjective / HPI Cardiovascular: as per Subjective / HPI Gastrointestinal: as per Subjective / HPI Genitourinary: as per Subjective / HPI Musculoskeletal: as per Subjective / HPI Neurologic: no problem reported Psychiatric: no problem reported Endocrine: as per Subjective / HPI Physical Exam Constitutional: + ill appearing; no acute distress Eyes: PERRL, conjunctivae normal, anicteric sclerae ENMT: external ear and nose normal, oropharynx normal Neck: normal visual inspection Respiratory: normal respiratory effort, lungs clear to auscultation Cardiovascular: Rate/Rhythm: regular rate and regular rhythm Heart Sounds: normal S1, normal S2 and + murmur (3/6 holosystolic murmur at the apex) Palpation: no thrill Vessels: posterior tibial pulses present, dorsalis pedis pulses present and radial pulses present Extremities: normal capillary refill; no calf tenderness and no edema Gastrointestinal (Abdomen): normal bowel sounds, soft, nontender, no hepatosplenomegaly Skin: no rashes, warm and dry Neurologic: patellar DTR's 2+ bilat, sensation intact Psychiatric: A+Ox3, euthymic affect Genitourinary: no CVA tenderness Lymphatic: no cervical or axillary lymphadenopathy Results & Data ([facility]) Vital Signs (Past 12 Hours) Vital Signs Temp Pulse Pulse Resp BP BP BP 02/13/21 07:29 38.0 C H 98 H 18 114/66 02/13/21 04:52 75 02/13/21 04:00 36.9 C 78 18 102/59 L 02/13/21 01:12 37.7 C H 93 H 20 116/55 L 02/13/21 00:31 101 H 17 106/66 02/12/21 23:40 101 H 17 02/12/21 23:30 120 H 15 106/66 02/12/21 23:20 111 H 19 02/12/21 23:14 38.3 C H 02/12/21 23:01 99 H 21 02/12/21 23:00 99 H 19 115/49 L 02/12/21 22:40 102 H 20 Pulse Ox 02/13/21 07:29 97 02/13/21 04:52 02/13/21 04:00 94 02/13/21 01:12 95 02/13/21 00:31 97 02/12/21 23:40 97 02/12/21 23:30 96 02/12/21 23:20 97 02/12/21 23:14 02/12/21 23:01 98 02/12/21 23:00 98 02/12/21 22:40 100
--- NOTE | 2021-02-13 11:12 | Pharmacy Report ---
Pharmacy Abx Dose Short Note - Date of Service February 13, 2021 - Assessment & Plan Assessment 21 year old female admitted with fever/chills. Hx of rheumatic heart disease, takes pcn daily for prophylaxis. Blood cultures x 2 pending. Started empirically on vancomycin, ceftriaxone and doxycycline. Concern also for possible tick infection. Labs pending. Plan Vancomycin * Vancomycin 1500 mg x 1 given early this AM * Started on vancomycin 750 mg iv q 8 hr - dosing based upon vancomycin AUC nomogram. Plan to obtain level prior to the 1000 dose tomorrow to ensure therapeutic. * Estimated kinetics; t1/2~7 hrs, ke~0.096, CrCl >100 * Blood cultures pending currently, remains febrile this AM Pharmacy will continue to follow and will adjust dose/frequency as necessary. Thank you.
--- NOTE | 2021-02-13 14:27 | XCELERA ---
[id number]
[2021-02-13] MEDS: DOXYCYCLINE HYCLATE 100 MG in DEXTROSE 5% 100 ML IV SCH (17:45)
--- NOTE | 2021-02-13 19:47 | Billing Data ---
Date of Service February 13, 2021 Coding Level of Care Code 40874 Subseq Hosp Care Lvl 3
[2021-02-13] MEDS ORDERED: cefTRIAXone SODIUM 2,000 MG in DEXTROSE 5% 50 ML IV SCH (20:00)
--- NOTE | 2021-02-13 22:20 | Electrocardiogram Report ---
Test Reason : Blood Pressure : / mmHG Vent. Rate : 097 BPM Atrial Rate : 097 BPM P-R Int : 168 ms QRS Dur : 084 ms QT Int : 348 ms P-R-T Axes : 065 074 051 degrees QTc Int : 441 ms Normal sinus rhythm Normal ECG When compared with ECG of 28-NOV-2020 21:40, No significant change was found Confirmed by Patrick Cervantes ([id number]) on 02/13/2021 10:20:16 PM Referred By: REFERRED SELF Confirmed By:Patrick Cervantes
--- NOTE | 2021-02-13 22:49 | Billing Data ---
Date of Service February 13, 2021 Coding Level of Care Code 65031 Initial Inpt Care Lvl 2
[2021-02-14] MEDS: DOXYCYCLINE HYCLATE 100 MG in DEXTROSE 5% 100 ML IV SCH (06:01)
[2021-02-14] MEDS: ACETAMINOPHEN 325 MG TAB PO PRN ×2 (06:18→12:13)
[2021-02-14] MEDS: BCP'S~ORDER AWAITING ACTION SCH (07:07)
[2021-02-14] MEDS: TRINTELLIX~ORDER AWAITING ACTION SCH (07:07)
[2021-02-14] MEDS: LORATADINE 10 MG TAB PO SCH (07:30)
[2021-02-14 07:41] LABS: Alanine Aminotransferase 10 U/L (12-78); Albumin Globulin Ratio 0.9 (0.9-2); Albumin Level 3.1 gm/dl (3.4-5.0); Alkaline Phosphatase 66 U/L (45-117); Aspartate Aminotransferase 9 U/L (15-37); BUN Creatinine Ratio 9.9 (10-20); Bilirubin,Total 0.3 mg/dl (0.2-1); Blood Urea Nitrogen 6 mg/dl (7-18); Calcium 8.9 mg/dl (8.5-10.1); Carbon Dioxide 21 mmol/L (21-32); Chloride 112 mmol/L (98-107); Creatinine Clr Calc Pharmacy 144.9 ml/min; Est GFR (African American) > 150.0 ml/min; Est GFR (Non-African American) 131.6 ml/min; Globulin 3.4 gm/dl (2.5-4.0); Glucose 75 mg/dl (70-99); Potassium 3.2 mmol/L (3.5-5.1); Sodium 141 mmol/L (136-145); Total Protein 6.5 gm/dl (6.4-8.2)
[2021-02-14] MEDS ORDERED: VANCOMYCIN TROUGH ONE (09:30)
[2021-02-14 09:50] LABS: Basophils # (auto) 0.02 K/uL (0-0.2); Basophils % (auto) 0.2 %; Eosinophils # (auto) 0.14 K/uL (0-0.5); Eosinophils % (auto) 1.3 %; Hematocrit (blood only) 37.2 % (37-47); Hemoglobin 12.9 g/dL (12.0-16.0); Immature Granulocytes # (auto) 0.02 K/uL (0.00-0.02); Immature Granulocytes % (auto) 0.2 %; Lymphocytes # (auto) 1.29 K/uL (1.2-3.4); Lymphocytes % (auto) 12.3 %; Mean Corpuscular Hemoglobin 30.4 pg (25-34); Mean Corpuscular Hgb Conc 34.7 g/dL (32-36); Mean Corpuscular Volume 87.5 fL (80-100); Mean Platelet Volume 10.2 fL (7.4-10.4); Monocytes # (auto) 0.76 K/uL (0.11-0.59); Monocytes % (auto) 7.2 %; Neutrophils % (auto) 78.8 %; Platelet Count 189 K/uL (130-400); RDW Coefficient of Variation 12.8 % (11.5-14.5); RDW Standard Deviation 41.1 fL (36.4-46.3); Red Blood Count 4.25 M/uL (4.2-5.4); White Blood Count 10.53 K/uL (4.8-10.8)
--- NOTE | 2021-02-14 10:42 | Discharge Summary ---
Date of Service February 14, 2021 Admission HPI Per Admitting Provider 21 yo F with hx rheumatic heart disease presenting to ER for 2 days of fever and general illness. Describes initially feverish, progressing to chills, sweats, nausea, vomiting, loss of appetite, joint pains, fatigue. Denies rashes, swelling/joint swelling that she has noticed, blurry vision, headache, lightheadedness. Says her friend that she saw yesterday had a fever today but was not as sick as she is. Denies any other sick contacts. Had covid in November, got the first pfizer vaccine in beginning of february. 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 takes daily penicillin prophylaxis. Does state that she has been taking graduation pictures for the past 2 weeks and spent considerable time sitting in the grass/calvin. Hasn't been wearing bug spray and only checked her ankles for ticks. hasn't had anyone else check her hair or body for ticks. Primary Care Provider: [facility] Admission Exam Per Admitting Provider Constitutional: thin ill appearing young female Eyes: EOMI, pupils equal and reactive bilaterally, no scleral icterus Cardiac: RRR, prominent 3/6 blowing systolic murmur at apex Pulm: CTA BL, no wheezes, rhonchi, crackles or rubs, moving air well throughout both lungs Abd: soft, nontender, nondistended, normal bowel sounds, no rebound or guarding Extremities: 2+ peripheral pulses, no edema Skin: no rashes, spinter hemorrhages on nails, janeway lesions, osler nodes Joints: mild effusion of L knee compared to R, otherwise Neuro: no focal deficits, moving all 4 limbs, A&Ox3 Principal Diagnosis fever suspected acute viral syndrome Discharge Exam General: Tired-appearing 21yoF who is alert, oriented, and appears mildly diaphoretic. She is fully alert and oriented, and in NAD. HEENT: NCAT. Eyes - Sclera are white, anicteric, and without injection. PERRL. Mouth - chapped lips appreciated, MMM with no edema or exudates. Neck - supple and without LAD. Cardiac: Normal rate and regular rhythm; S1 and S2 present with grade 2/6 blowing systolic murmur best heard at the apex Pulmonary: Good respiratory effort with symmetric expansion of the chest. No use of accessory muscles. Lungs were clear to auscultation bilaterally with no crackles or wheezes. Abdominal: Normoactive bowel sounds. Abdomen was soft, nondistended, and non- tender to palpation. Extremities: Upper and lower extremities are warm and well perfused. Radial pulses were 2+ b/l. Capillary refill assessed in UE was < 3 sec. No peripheral edema. Discharge Data Allergies Allergy/AdvReac Type Severity Reaction Status Date / Time No Known Allergies Allergy Verified 02/12/21 21:53 Consultations 02/12/21 22:47 ED Decision to Admit Stat Hospital Course (1) Fever: Arianne Penn is a 21-year-old female with a past medical history of rheumatic heart disease on chronic penicillin who presented to [facility] emergency department on 02/12/21 with fever, muscle aches, vomiting, and dehydration, suspected to represent an acute viral syndrome. While tick-borne work-up has come back negative and seems less likely from a clinical perspective, this cannot be ruled out either. There is no concern for bacterial endocarditis. 1. Fever * Clinically reported ~2 days worth of fever, myalgias, nausea, vomiting, and dehydration * Work-up as follows: - Peak temperature at admission to 38.3 -- resolved during course * Leukocytosis (16.22) with neutrophil predominance * Blood culture pending * Urinalysis normal. Normal LFTs. Normal CXR. No dermatologic sources of infection * Negative Covid, Infleunza, RSV, [place] * Lyme IgM and IgG negative * Anaplasma smear negative. Anaplasma DNA pending. Ehrlichia pending. * No vegetation or valvular abnormality on echocardiogram * Broad spectrum antibiotic coverage with Vancomycin, Ceftriaxone, and Doxycycline initiated in emergency department. Discontinued Vancomycin and Ceftriaxone on 02/13/21 due to low suspicion for non-tickborne bacterial etiology. Although a viral etiology is suspected, it is reasonable to continue Doxycycline for coverage of potential tickborne illnesses due to high local prevalence. Lyme antibodies negative but finding has low sensitivity in early disease * Continue maintenance fluids with normal saline infusion due to poor PO intake 2. Rheumatic Heart Disease Patient has a history of rheumatic heart disease managed with chronic penicillin since age 4. The patient endorses a history of mitral valve damage with known systolic murmur. * Transthoracic echo performed 5/12/21: Normal LV size and function. EF 60-65%. No LV hypertrophy. No significant diastolic dysfunction. No significant valvular abnormality. No visualized vegetation. Normal estimated RV systolic pressure. * Penicillin V potassium 250 mg BID Code Status: Full Code F/E/N: Normal saline. Normal diet VTE PPx: Low risk. Ambulation Dispo: med/surg. Plan to discharge home tomorrow (2) Anxiety: (3) Rheumatic heart disease: Discharge Plan Discharge Items Patient Disposition: Home - Self-Care Reason For Visit: FEVER Discharge Diagnosis: Fever Acute Viral Syndrome - Suspected Activity: Per Instructions section Non-emergency contact: Primary Care Provider Call non-emergency contact if: your symptoms worsen, your pain is not controlled and your temperature is above 101 Follow-up/Referrals: [facility] [Primary Care Provider] - Diet: Regular Addtl Attending Provider Instructions: You were seen at [facility] for evaluation of symptoms of illness, including fever, joint pains, sore throat, and fatigue. During your time here, you underwent work-up to rule out worrisome causes of these symptoms. Thankfully, your tests did not show any evidence of an acute respiratory illness or virus. Similarly, your tick-borne labs -- which are good tests, but do have room for error -- came back negative. There was no evidence of infection in the urine. Your blood counts and cultures were not suggestive of a bacterial infection. You got an ultrasound of the heart (echocardiogram), which showed a healthy heart without any abnormalities. Prior to your discharge, you did show mild improvement in your symptoms. IV Fluids and antibiotics were given empirically to support this recovery. While the exact cause of your symptoms remains unclear, your constellation and duration of your symptoms, paired with some of your labs, make a viral syndrome most suspect. As noted above, while tick-borne illnesses (Lyme, anaplasmosis) seem unlikely, the tests for these are not perfect and do have a margin of error. As a precautionary measure, you will be discharged with a short course of doxycycline (an antibiotic) to complete to cover for this possibility. While you are on this antibiotic, you can hold your penicillin. Once your doxycycline is finished, however, you should resume your PCP as directed. It is imperative you remain well hydrated during your recovery. Aim for at least 2 liters of fluid, mostly water (mixed in sports drinks are OK), daily. Even if appetite isn't great, we encourage you to maintain a daily meal schedule to give your body the energy and nutrients it needs through recovery. We also recommend taking a daily probiotic while you are on these antibiotics. In the interim, please follow-up with your PCP within 1 week to review this visit. If you experience any sudden worsening of your symptoms, including swollen hot joints, development of severe cough, regular nausea/vomiting, shortness of breath, chest pain, new numbness or tingling, or other worrisome things, please seek medical attention immediately - for most prompt treatment, call 911 or report to the ER for evaluation. We recommend signing up for the patient portal so you have access to your labs, studies (including echocardiogram), and notes for reference, if ever needed in the future. It has been a pleasure to care for you during your stay here. We wish you the best throughout your recovery. Pending Studies at Discharge: No Stand-Alone Forms: My [facility], Smoking Cessation Medications and DC Order Prescriptions: Continued penicillin V potassium 250 mg Tablet 250 mg PO BID RF: 0 methylphenidate HCl [Ritalin] 10 mg Tablet 5 mg PO DIRECTED PRN (Reason: HIGH STRESS DAYS) RF: 0 alprazolam [Xanax] 0.5 mg Tablet 0.25 mg PO DIRECTED PRN (Reason: Anxiety) RF: 0 loratadine [Claritin] 10 mg Tablet 10 mg PO QAM RF: 0 Trintellix 10 mg Tablet 10 mg PO HS RF: 0 No Action norethindrone (contraceptive) [Magdalena] 0.35 mg Tablet 0.35 mg PO HS RF: 0 Admission Data Admit Date/Time: 02/12/21 23:36 Attending Provider: Neil Jennings Admit Provider: Kiarra Cook Primary Care Provider: [facility] Other Providers: Nikolas Hicks
--- NOTE | 2021-02-14 13:54 | Med Student Discharge Summary ---
Date of Service February 14, 2021 Admission HPI Per Admitting Provider 21 yo F with hx rheumatic heart disease presenting to ER for 2 days of fever and general illness. Describes initially feverish, progressing to chills, sweats, nausea, vomiting, loss of appetite, joint pains, fatigue. Denies rashes, swelling/joint swelling that she has noticed, blurry vision, headache, lightheadedness. Says her friend that she saw yesterday had a fever today but was not as sick as she is. Denies any other sick contacts. Had covid in November, got the first pfizer vaccine in beginning of february. Has followed with a coke production heater in 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 takes daily penicillin prophylaxis. Does state that she has been taking graduation pictures for the past 2 weeks and spent considerable time sitting in the grass/calvin. Hasn't been wearing bug spray and only checked her ankles for ticks. hasn't had anyone else check her hair or body for ticks. Primary Care Provider: [facility] Discharge Data Consultations 02/12/21 22:47 ED Decision to Admit Stat Hospital Course (1) Fever: Arianne Penn is a 21-year-old female with a past medical history of rheumatic heart disease on chronic penicillin who presented to [facility] emergency department on 02/12/21 with fever, muscle aches, vomiting, and dehydration, suspected to represent an acute viral syndrome. While tick-borne work-up has come back negative and seems less likely from a clinical perspective, this cannot be ruled out either. There is no concern for bacterial endocarditis. 1. Fever * Clinically reported ~2 days worth of fever, myalgias, nausea, vomiting, and dehydration * Work-up as follows: - Peak temperature at admission to 38.3 -- resolved during course * Leukocytosis (16.22) with neutrophil predominance * Blood culture pending * Urinalysis normal. Normal LFTs. Normal CXR. No dermatologic sources of infection * Negative Covid, Infleunza, RSV, [place] * Lyme IgM and IgG negative * Anaplasma smear negative. Anaplasma DNA pending. Ehrlichia pending. * No vegetation or valvular abnormality on echocardiogram * Broad spectrum antibiotic coverage with Vancomycin, Ceftriaxone, and Doxycycline initiated in emergency department. Discontinued Vancomycin and Ceftriaxone on 02/13/21 due to low suspicion for non-tickborne bacterial etiology. Although a viral etiology is suspected, it is reasonable to continue Doxycycline for coverage of potential tickborne illnesses due to high local prevalence. Lyme antibodies negative but finding has low sensitivity in early disease. Continue PO Doxycycline 100 mg BID for 14 day 2. Pharyngitis Patient endorses severe dysphagia and an erythematous oropharynx is appreciated on exam. Although a viral URI is most likely, strep pharyngitis should be ruled out due to the patient's history of rheumatic heart disease. * Group A strep PCR pending. Follow up with results for outpatient antibiotic therapy if positive * Patient on chronic Penicillin V Potassium 250 mg BID due to history of rheumatic heart disease. If antibiotic treatment is indicated for strep pharyngitis in a patient with rheumatic heart disease, suitable antibiotic regimens include Amoxicillin 500 mg BID for 10 days or Cephalexin 500 mg BID for 10 days * Although patient will be completing a 14-day course of Doxycycline for potential tick-borne infections, Doxycycline has poor coverage for strep pharyngitis 3. Rheumatic Heart Disease Patient has a history of rheumatic heart disease managed with chronic penicillin since age 4. The patient endorses a history of mitral valve damage with known systolic murmur. * Transthoracic echo performed 02/13/21: Normal LV size and function. EF 60-65%. No LV hypertrophy. No significant diastolic dysfunction. No significant valvular abnormality. No visualized vegetation. Normal estimated RV systolic pressure. * Penicillin V potassium 250 mg BID Code Status: Full Code F/E/N: Normal diet VTE PPx: Dispo: Discharge home (2) Anxiety: (3) Rheumatic heart disease: Discharge Plan Discharge Items Patient Disposition: Home - Self-Care Reason For Visit: FEVER Discharge Diagnosis: Fever Acute Viral Syndrome - Suspected Activity: Per Instructions section Non-emergency contact: Primary Care Provider Call non-emergency contact if: your symptoms worsen, your pain is not controlled and your temperature is above 101 Follow-up/Referrals: [facility] [Primary Care Provider] - (PLEASE FOLLOW UP WITH [facility] WITHIN 7-10 DAYS.) Diet: Regular Addtl Attending Provider Instructions: You were seen at [facility] for evaluation of symptoms of illness, including fever, joint pains, sore throat, and fatigue. During your time here, you underwent work-up to rule out worrisome causes of these symptoms. Thankfully, your tests did not show any evidence of an acute respiratory illness or virus. Similarly, your tick-borne labs -- which are good tests, but do have room for error -- came back negative. There was no evidence of infection in the urine. Your blood counts and cultures were not suggestive of a bacterial infection. You got an ultrasound of the heart (echocardiogram), which showed a healthy heart without any abnormalities. Prior to your discharge, you did show mild improvement in your symptoms. IV Fluids and antibiotics were given empirically to support this recovery. While the exact cause of your symptoms remains unclear, your constellation and duration of your symptoms, paired with some of your labs, make a viral syndrome most suspect. As noted above, while tick-borne illnesses (Lyme, anaplasmosis) seem unlikely, the tests for these are not perfect and do have a margin of error. As a precautionary measure, you will be discharged with a short course of doxycycline (an antibiotic) to complete to cover for this possibility. It is imperative you remain well hydrated during your recovery. Aim for at least 2 liters of fluid, mostly water (mixed in sports drinks are OK), daily. Even if appetite isn't great, we encourage you to maintain a daily meal schedule to give your body the energy and nutrients it needs through recovery. We also recommend taking a daily probiotic while you are on these antibiotics. In the interim, please follow-up with your PCP within 1 week to review this visit. If you experience any sudden worsening of your symptoms, including swollen hot joints, development of severe cough, regular nausea/vomiting, shortness of breath, chest pain, new numbness or tingling, or other worrisome things, please seek medical attention immediately - for most prompt treatment, call 911 or report to the ER for evaluation. We recommend signing up for the patient portal so you have access to your labs, studies (including echocardiogram), and notes for reference, if ever needed in the future. It has been a pleasure to care for you during your stay here. We wish you the best throughout your recovery. Pending Studies at Discharge: No Stand-Alone Forms: My [facility] [employer], Smoking Cessation Medications and DC Order Prescriptions: New doxycycline hyclate 100 mg tablet 100 mg PO BID 8 Days Qty: 16 RF: 0 Continued penicillin V potassium 250 mg Tablet 250 mg PO BID RF: 0 methylphenidate HCl [Ritalin] 10 mg Tablet 5 mg PO DIRECTED PRN (Reason: HIGH STRESS DAYS) RF: 0 alprazolam [Xanax] 0.5 mg Tablet 0.25 mg PO DIRECTED PRN (Reason: Anxiety) RF: 0 norethindrone (contraceptive) [Magdalena] 0.35 mg Tablet 0.35 mg PO HS RF: 0 loratadine [Claritin] 10 mg Tablet 10 mg PO QAM RF: 0 Trintellix 10 mg Tablet 10 mg PO HS RF: 0 Discharge Orders: Discharge Order (Routine); Ordered 02/14/21 Ordered By: Neil Desai Admission Data Admit Date/Time: 02/12/21 23:36 Attending Provider: Neil Jennings Admit Provider: Kiarra Cook Primary Care Provider: [facility] Other Providers: Nikolas Hicks Other Interventions: Discharge Summary Assessment (RN) Last Done: 02/14/21 12:27 Supervising Attestation I personally examined the patient and verified all day points of history and exam, discussed case, and agree with decision making with Elida Alfaro MS4 sore throat but somewhat improved. ovreall feeling better though. feels up to going home. vitals noted nad heent nc at erythematous oropharyx no exudate. breathing unlabored no accessory muscles good effort skin no rashes no pallor or icterus sepsis appearance - likely viral, can't definitively rule out tick borne. appears stable for home. finish empiric doxy otherwise as above
--- NOTE | 2021-02-14 17:56 | Billing Data ---
Date of Service February 14, 2021 Coding Level of Care Code D/C Day Management <30 mins
[2021-02-16 23:06] LABS: Ehrlichia chaff IgG Ab <1:64 (<1:64); Ehrlichia chaff IgM Ab <1:20 (<1:20)
== END 2021-02-14 12:55 | disposition home or self-care (01) | DRG 866 ==
LOC: ED 20:07 → 2W 23:36 → SUATTDRO 23:36 → 2W 02-13 00:31